=== PATIENT | male | born 1985 | race Caucasian/White ===

== ENCOUNTER 2022-03-13 18:39 | Emergency (ER) | payer MEDICAID ==
[~2022-03-13] VITALS: Ht 167.6 cm; Wt 70.3 kg
[2022-03-13 18:54] VITALS: BP 134/83
--- NOTE | 2022-03-13 18:57 | NUR ---
PT WHEELCHAIR ASSISTED TO LOBBY
[2022-03-13] MEDS ORDERED: ONDANSETRON 4 MG ODT PO ONE (19:20)
[2022-03-13] MEDS ORDERED: KETOROLAC 30 MG/ML VIAL IM ONE (19:20)
[2022-03-13] MEDS ORDERED: HYDROcodone/APAP 7.5/325 MG 1 TAB PO ONE (19:20)
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
== END 2022-03-13 20:05 | disposition left against medical advice (07) ==
LOC: MED 18:39
DX: M54.50 Low back pain, unspecified (principal)
CPT/HCPCS: 72100; 96372; 99283; J1885; Q0162